=== PATIENT | female | born 1965 | race American Indian/Alaskan Native ===

== ENCOUNTER 2016-06-09 15:46 | Emergency (ER) | payer SELFPAY ==
[2016-06-09 16:42] VITALS: BP 170/92
== END 2016-06-09 19:22 | disposition left against medical advice (07) ==
LOC: ED 15:46
DX: M79.606 Pain in leg, unspecified (principal); M25.559 Pain in unspecified hip; Z53.21 Procedure and treatment not carried out due to patient leaving prior to being seen by health care provider

== ENCOUNTER 2017-07-13 19:31 | Emergency (ER) | payer SELFPAY ==
[2017-07-13 20:44] VITALS: BP 162/93
[2017-07-14] MEDS ORDERED: TORADOL IM ONE (00:24)
[2017-07-14] MEDS ORDERED: ULTRAM PO ONE (00:25)
--- NOTE | 2017-07-14 00:46 | Emergency Department Report ---
HPI - General Chief Complaint: Back Pain/Injury Time Seen by Provider: 07/14/17 00:24 - HPI HPI: The patient is a 51-year-old female with a history of chronic back pain, presents for evaluation of recurrence of back pain. The patient states that she has experienced recurrence of back pain for the past 9 days, currently 8/10 in severity, sharp in quality, exacerbated with movement of the lower back. The patient denies blunt trauma to the back, fall, fever, chills, night sweats, saddle anesthesia, paresthesias, numbness or tingling in the legs, leg weakness , urine or bowel incontinence or retention, difficulty ambulating, or other focal neurological deficits. The patient also denies redness or swelling to the back, IV drug use, history of cancer. ED Past Medical Hx - Past Medical History Hx Psychiatric Treatment: Yes (bipolar) Additional medical history: Sciatic nerve pain, Leg pain, Pain management for back pain - Surgical History Additional Surgical History: Right knee - Social History Smoking Status: Current Every Day Smoker Substance Use Type: None - Medications Home Medications: Home Medications Medication Instructions Recorded Confirmed Last Taken Type Cyclobenzaprine [Flexeril] 10 mg PO TID PRN 06/09/16 06/09/16 06/09/16 History Naproxen [Naprosyn] 500 mg PO BID 06/09/16 06/09/16 06/09/16 History traMADol [Ultram 50 MG tab] 50 mg PO Q6HR PRN #10 tablet 07/14/17 Unknown Rx ED Review of Systems ROS: Stated complaint: BACK PAIN Other details as noted in HPI Constitutional: denies: fever ENT: denies: throat or neck pain Respiratory: denies: cough, shortness of breath Cardiovascular: denies: chest pain Endocrine: denies unexplained weight loss or gain Gastrointestinal: denies: abdominal pain, nausea Genitourinary: denies: dysuria Musculoskeletal: reports back pain denies: leg swelling Skin: denies: rash Neurological: denies: headache Hematological/Lymphatic: denies: easy bleeding or easy bruising Psych: denies sadness or hopelessness Physical Exam - Physical Exam Vital Signs: Vital Signs 07/13/17 20:38 Temperature 97.8 F Pulse Rate 80 Respiratory 18 Rate Blood Pressure 162/93 O2 Sat by Pulse 100 Oximetry Physical Exam: General: well-nourished, well-developed, no acute distress Head: Normocephalic, atraumatic Eyes: normal sclera ENT: Mucous membranes are pink and moist Neck: trachea midline, neck supple, No neck stiffness, no cervical adenopathy Respiratory: Breath sounds equal bilaterally, no wheezing, rales, or rhonchi Cardio: S1 and S2 present, no murmurs, rubs, gallops, capillary refill is brisk Abdomen: Normoactive bowel sounds, soft abdomen, no rigidity, no guarding or rebound tenderness Chest WALL/Back: Tenderness to palpation present to bilateral lower lumbar paraspinal musculature, normal active range of motion at the hip intact, no spinous step-off or obvious deformity, ipsi-lateral and contralateral straight leg raise tests are negative. On extremity testing, compartments are soft and pliable, no obvious gross motor strength deficit, 5+ motor strength, including extension of the great toe bilaterally, no muscular atrophy, spasticity, fasciculations, or clonus, no obvious gross sensation deficit including web space between 1st and 2nd toes, reflexes 2+ & symmetric on DTR testing at the knee and ankle joints, distal pulses intact. Musc: No pitting edema Skin: No rash Neuro: no facial drooping, normal speech Psych: Normal affect ED Course Vital Signs 07/13/17 20:38 Temperature 97.8 F Pulse Rate 80 Respiratory 18 Rate Blood Pressure 162/93 O2 Sat by Pulse 100 Oximetry ED Medical Decision Making - Medical Decision Making The patient was seen and examined by myself. The patient is placed on a lead teller and continuous pulse ox. On initial evaluation, the patient was found to be in no distress. No findings on exam concerning for cauda equina syndrome, spinal stenosis, or epidural abscess . As the patient has no midline tenderness on exam, no neuro deficits, and no findings concerning for emergent etiology of their back pain, imaging will not be obtained at this time. The patient is given an IM dose of Toradol for her pain. The patient is stable for discharge with outpatient follow-up. The patient is given follow-up and return instructions. The patient expressed understanding and agreed with the plan. The patient is discharged in stable condition. Critical care attestation.: If time is entered above; I have spent that time in minutes in the direct care of this critically ill patient, excluding procedure time. ED Disposition Clinical Impression: Acute bilateral low back pain without sciatica Disposition: TO HOME OR SELFCARE Is pt being admited?: No Does the pt Need Aspirin: No Condition: Stable Instructions: Back Pain (ED), Sciatica (ED) Additional Instructions: Do not take more than the prescribed dose of pain medicine, or combine or take the pain medicine prescribed to you today with other pain medicine, sleeping medicine or other sedatives, or with alcohol, as doing so may cause central nervous system sedation and respiratory depression, and potentially cause you to stop breathing and . Additionally, do not drive a vehicle, operate heavy machinery, or engage in any activity that would cause harm to yourself or others after taking the pain medicine prescribed to you. Referrals: PRIMARY CARE, [Primary Care Provider] - 3-5 Days Time of Disposition: 00:34
== END 2017-07-14 01:10 | disposition home or self-care (01) ==
LOC: ED 19:31
DX: M54.5 Low back pain (principal); G89.29 Other chronic pain; F31.9 Bipolar disorder, unspecified; F17.200 Nicotine dependence, unspecified, uncomplicated
CPT/HCPCS: 96372; 99283; J1885

== ENCOUNTER 2017-08-14 15:32 | Emergency (ER) | payer SELFPAY ==
[2017-08-14 16:11] VITALS: BP 176/106
== END 2017-08-14 18:06 | disposition left against medical advice (07) ==
LOC: ED 15:32
DX: M79.89 Other specified soft tissue disorders (principal); Z53.21 Procedure and treatment not carried out due to patient leaving prior to being seen by health care provider

== ENCOUNTER 2017-08-15 06:16 | Emergency (ER) | payer SELFPAY ==
--- NOTE | 2017-08-15 12:37 | Emergency Department Report ---
ED Lower Extremity HPI - General Chief Complaint: Extremity Injury, Lower Stated Complaint: LEFT FOOT PAIN ,SWOLLEN Time Seen by Provider: 08/15/17 12:35 Source: patient Mode of arrival: Ambulatory Limitations: No Limitations - History of Present Illness Initial Comments: This is a 51 y.o. female that presents with left foot pain for 3 days. Patient has history of chronic low back pain with sciatica bilaterally. Reports recent low back pain radiating down RLE. She was nursing the right lower extremity and putting more pressure on LLE. States left ankle is swollen and painful with ambulation. She was seeing pain management while living in [place] and have no insurance to f/u with them here. Reports pain got worse over the past 2 days. 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 Pain is 10/10 on pain scale and worse with flexion. She is taking ibuprofen and tylenol with no improvement of symptoms. Denies numbness, tingling, redness, deformity, recent fall/injury to left ankle. MD Complaint: ankle injury (swollen and painful with weight bearing) -: days(s) (3) Injury: Ankle: Left (swollen and painful with ambulation) Type of Injury: unknown Place: home Severity: severe Severity scale (0 -10): 10 Improves With: nothing Worsens With: weight bearing, movement Associated Symptoms: swelling, able to partially bear weight, ambulatory. denies: numbness, tingling, unable to bear weight Treatments Prior to Arrival: NSAIDS - Related Data Home Medications Medication Instructions Recorded Confirmed Last Taken Cyclobenzaprine [Flexeril] 10 mg PO TID PRN 06/09/16 06/09/16 06/09/16 Naproxen [Naprosyn] 500 mg PO BID 06/09/16 06/09/16 06/09/16 Previous Rx's Medication Instructions Recorded Last Taken Type traMADol [Ultram 50 MG tab] 50 mg PO Q6HR PRN #10 tablet 07/14/17 Unknown Rx Cyclobenzaprine HCl [Flexeril 5 MG 5 mg PO TID PRN #20 tab 08/15/17 Unknown Rx TAB] Hydrochlorothiazide 12.5 mg PO DAILY #30 tablet 08/15/17 Unknown Rx Ibuprofen 800 mg PO Q6H PRN #20 tablet 08/15/17 Unknown Rx Losartan [Cozaar] 12.5 mg PO QDAY #30 tablet 08/15/17 Unknown Rx Allergies Allergy/AdvReac Type Severity Reaction Status Date / Time No Known Allergies Allergy Verified 07/13/17 20:45 ED Review of Systems ROS: Stated complaint: LEFT FOOT PAIN ,SWOLLEN Other details as noted in HPI Constitutional: denies: chills, fever Respiratory: denies: cough, shortness of breath, wheezing Cardiovascular: denies: chest pain, palpitations Gastrointestinal: denies: abdominal pain, nausea, diarrhea Musculoskeletal: joint swelling (right ankle), arthralgia (right ankle pain). denies: back pain Skin: denies: rash, lesions Neurological: denies: headache, weakness, numbness, paresthesias Psychiatric: denies: anxiety, depression ED Past Medical Hx - Past Medical History Previous Medical History?: Yes Hx Arthritis: Yes Hx Psychiatric Treatment: Yes (bipolar) Additional medical history: Sciatic nerve pain, Leg pain, Pain management for back pain - Surgical History Past Surgical History?: Yes Additional Surgical History: Right knee - Social History Smoking Status: Current Every Day Smoker Substance Use Type: Alcohol - Medications Home Medications: Home Medications Medication Instructions Recorded Confirmed Last Taken Type Cyclobenzaprine [Flexeril] 10 mg PO TID PRN 06/09/16 06/09/16 06/09/16 History Naproxen [Naprosyn] 500 mg PO BID 06/09/16 06/09/16 06/09/16 History traMADol [Ultram 50 MG tab] 50 mg PO Q6HR PRN #10 tablet 07/14/17 Unknown Rx Cyclobenzaprine HCl [Flexeril 5 MG 5 mg PO TID PRN #20 tab 08/15/17 Unknown Rx TAB] Hydrochlorothiazide 12.5 mg PO DAILY #30 tablet 08/15/17 Unknown Rx Ibuprofen 800 mg PO Q6H PRN #20 tablet 08/15/17 Unknown Rx Losartan [Cozaar] 12.5 mg PO QDAY #30 tablet 08/15/17 Unknown Rx ED Physical Exam - General Limitations: No Limitations General appearance: alert, in no apparent distress - Respiratory Respiratory exam: Present: normal lung sounds bilaterally. Absent: respiratory distress, wheezes, rales, rhonchi, stridor, decreased breath sounds - Cardiovascular Cardiovascular Exam: Present: regular rate, normal rhythm, normal heart sounds. Absent: systolic murmur, diastolic murmur, rubs, gallop - GI/Abdominal GI/Abdominal exam: Present: soft, normal bowel sounds. Absent: distended, tenderness, guarding, rebound, rigid, organomegaly, mass - Extremities Exam Extremities exam: Present: normal inspection, full ROM (painful with movement), normal capillary refill. Absent: pedal edema - Expanded Lower Extremity Exam Left Hip exam: Present: normal inspection, full ROM Upper Leg exam: Present: normal inspection, full ROM Knee exam: Present: normal inspection, full ROM Lower Leg exam: Present: normal inspection, full ROM Ankle exam: Present: full ROM (painful with movement passive and active dorsiflexion and plantarflexion, 45 degree), swelling. Absent: abrasion, laceration, ecchymosis, deformity, crepidus, dislocation, erythema, anterior draw sign Foot/Toe exam: Present: normal inspection, full ROM Neuro vascular tendon exam: Present: no vascular compromise Gait: Positive: observed and limited by pain ED Course Vital Signs 08/15/17 08/15/17 08/15/17 07:46 11:25 13:06 Temperature 97.6 F 97.6 F Pulse Rate 82 73 Respiratory 18 18 18 Rate Blood Pressure 193/86 185/99 Blood Pressure [Left] O2 Sat by Pulse 98 Oximetry 08/15/17 14:33 Temperature 97.8 F Pulse Rate 68 Respiratory 16 Rate Blood Pressure Blood Pressure 172/93 [Left] O2 Sat by Pulse 100 Oximetry ED Lower Extremity MDM - Medical Decision Making This is a 51 y.o. female that presents with left ankle pain for 3 days. History of chronic low back pain with sciatica. Patient is stable and examined by me. No x-rays or labs obtained today. Denies recent injury. Blood Pressure elevated. Received clonodine 0.1 mg po and torodol 30 mg IM once in ER. Blood pressure trending down. No acute signs of distress noted. Discussed plan to start losartan 50 mg po daily and HCTZ 12.5 mg po daily with patient. Patient agrees to ED plan of care. Discharged home with losartin and HCTZ for hypertension, cyclobenzaprine, and ibuprofen. Follow up with PCP in 2-3 days. Critical care attestation.: If time is entered above; I have spent that time in minutes in the direct care of this critically ill patient, excluding procedure time. ED Disposition Clinical Impression: Pain and swelling of right ankle, Arthralgia of ankle, left Disposition: DC-01 TO HOME OR SELFCARE Is pt being admited?: No Does the pt Need Aspirin: No Condition: Stable Instructions: Arthralgia (ED) Additional Instructions: Rest Use ice or heat on affected area for 20 minutes and off for 2 hours. Take pain medication as needed for pain. Don't drive or operate heavy machinery while taking muscle relaxers because they may cause drowsiness. Follow up with Primary Care Provider in 2-3 days. Prescriptions: Cyclobenzaprine HCl [Flexeril 5 MG TAB] 5 mg PO TID PRN #20 tab PRN Reason: Muscle Spasm Hydrochlorothiazide 12.5 mg PO DAILY #30 tablet Ibuprofen 800 mg PO Q6H PRN #20 tablet PRN Reason: Pain Losartan [Cozaar] 12.5 mg PO QDAY #30 tablet Referrals: JELLY MARSHALL MD [Primary Care Provider] - 3-5 Days [facility] [Outside] - 3-5 Days [facility] [Outside] - 3-5 Days [facility] [Outside] - 3-5 Days Forms: Work/School Release Form(ED) Time of Disposition: 14:42 Print Language: ZIMBABWEAN
[2017-08-15] MEDS ORDERED: TORADOL IM ONE (12:55)
[2017-08-15] MEDS ORDERED: CATAPRES PO ONE (13:00)
[2017-08-15 14:34] VITALS: BP 172/93
== END 2017-08-15 15:11 | disposition home or self-care (01) ==
LOC: ED 06:16
DX: M25.571 Pain in right ankle and joints of right foot (principal); M25.572 Pain in left ankle and joints of left foot; M19.90 Unspecified osteoarthritis, unspecified site; F31.9 Bipolar disorder, unspecified; F17.200 Nicotine dependence, unspecified, uncomplicated
CPT/HCPCS: 96372; 99282; J1885

== ENCOUNTER 2020-04-25 13:44 | Emergency (ER) | payer SELFPAY ==
[2020-04-25 14:26] VITALS: BP 189/99
--- NOTE | 2020-04-25 14:27 | Event Note ---
ED Screening Note Date of service: 04/25/20 Time: 14:25 ED Screening Note: 54-year-old -[place] female presents to the emergency room for left knee pain and swelling x3 weeks. This initial assessment/diagnostic orders/clinical plan/treatment(s) is/are subject to change based on patients health status, clinical progression and re- assessment by fellow clinical providers in the ED. Further treatment and workup at subsequent clinical providers discretion. Patient/guardian urged not to elope from the ED as their condition may be serious if not clinically assessed and managed. Initial orders include:
--- NOTE | 2020-04-25 15:09 | XRay Report ---
LEFT KNEE 3 VIEW(S) INDICATION / CLINICAL INFORMATION: Knee pain with swelling COMPARISON: None available. FINDINGS: BONES / JOINT(S): No acute fracture or subluxation. 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 Large proximal patellar enthesophyte and small inferior patellar enthesophyte. Small suprapatellar joint effusion. 1.4 cm ossific fragment overlying the suprapatella r space could represent intra-articular body. SOFT TISSUES: Mild edema. ADDITIONAL FINDINGS: None. Signer Name: Roney Landeros MD Signed: 04/25/2020 3:04 PM Workstation Name: [id number]
[2020-04-25] MEDS ORDERED: oxyCODONE /ACETAMINOPHEN 5-325MG TAB PO ONE (20:02)
[2020-04-25] MEDS ORDERED: KETOROLAC 30 MG/1 ML INJ IV ONE (20:02)
[2020-04-25] MEDS ORDERED: dexAMETHasone 20 MG/5 ML VIAL IV ONE (20:02)
[2020-04-25 20:53] LABS: Basophils % (Auto) 0.6 % (0.0-1.8); Eosinophils # (Auto) 0.1 K/mm3 (0.0-0.4); Eosinophils % (Auto) 1.5 % (0.0-4.3); Hematocrit 37.5 % (30.3-42.9); Hemoglobin 12.4 gm/dl (10.1-14.3); Lymphocytes # (Auto) 3.2 K/mm3 (1.2-5.4); Lymphocytes % (Auto) 42.6 % (13.4-35.0); Mean Corpuscular HGB Conc 33 % (30-34); Mean Corpuscular Volume 93 fl (79-97); Monocytes # (Auto) 0.7 K/mm3 (0.0-0.8); Platelet Count 342 K/mm3 (140-440); Red Blood Count 4.06 M/mm3 (3.65-5.03); Red Cell Distribution Width 13.9 % (13.2-15.2)
[2020-04-25] MEDS ORDERED: amLODIPine 5 MG TAB PO ONE (21:03)
[2020-04-25 21:12] LABS: Alanine Aminotransferase 10 units/L (7-56); Albumin 3.8 g/dL (3.9-5); Blood Urea Nitrogen 15 mg/dL (7-17); Calcium 9.9 mg/dL (8.4-10.2); Hemolysis Index 14
[2020-04-25 21:14] LABS: BUN/Creatinine Ratio 21
--- NOTE | 2020-04-25 21:47 | Emergency Department Report ---
ED Extremity Problem HPI - General Chief complaint: Extremity Injury, Lower Stated complaint: LT KNEE PAIN Source: patient Mode of arrival: Wheelchair Limitations: No Limitations - History of Present Illness Initial comments: Patient is a 54-year-old -[place] female with a history of hypertension, chronic osteoarthritis, chronic low back pain with sciatica and bipolar disorder who presents to the ED with complaint of acute exacerbation of her chronic pain characterized by severe left knee pain with swelling for the last 3 weeks, worse in the last 3 days. Patient states that when the pain becomes worse she occasionally experiences episodes of syncope. Patient states that in the last 3 weeks she has had 2 episodes of syncope because of severe pain with no loss of consciousness. Patient also states that she has not been taking any blood pressure medication for over 6 months after she ran out of her medications. Patient states that the pain is worse with any ambulation or weightbearing on the left leg. Patient denies chest pain, shortness of breath, fever, chills, cough, nausea and vomiting, abdominal pain, headache, change in vision, seizures, numbness and tingling or weakness of lower extremities bilaterally, urinary or bowel incontinence or saddle paresthesia. MD Complaint: extremity pain (left knee ), extremity swelling (left knee pain and swelling), joint swelling (left knee swelling and pain), joint paint (left knee joint pain) -: Sudden, week(s) (3) Location: left, lower extremity (knee), knee History of Same: Yes -: Yes arthralgia (left knee), No fever, No associated dyspnea, No associated chest pain Severity scale (0 -10): 10 Quality: aching, sharp, constant Consistency: constant Improves with: nothing Worsens with: weight bearing, walking, exertion, palpation Associated Symptoms: denies other symptoms, arthralgias (Left knee). denies: chest pain, shortness of breath, fever, myalgias - Related Data Home Medications Medication Instructions Recorded Confirmed Last Taken Cyclobenzaprine [Flexeril] 10 mg PO TID PRN 06/09/16 06/09/16 06/09/16 Naproxen [Naprosyn] 500 mg PO BID 06/09/16 06/09/16 06/09/16 Previous Rx's Medication Instructions Recorded Last Taken Type Cyclobenzaprine HCl [Flexeril 5 MG 5 mg PO TID PRN #20 tab 08/15/17 Unknown Rx TAB] Ibuprofen 800 mg PO Q6H PRN #20 tablet 08/15/17 Unknown Rx Losartan [Cozaar] 12.5 mg PO QDAY #30 tablet 08/15/17 Unknown Rx hydroCHLOROthiazide 12.5 mg PO DAILY #30 tablet 08/15/17 Unknown Rx [Hydrochlorothiazide] oxyCODONE /ACETAMINOPHEN [Percocet 1 tab PO Q6HR PRN #10 tablet 11/26/19 Unknown Rx 5/325] Lisinopril/Hydrochlorothiazide 1 tab PO QDAY #30 tab 04/25/20 Unknown Rx [Zestoretic 20-25 mg] Naproxen 500 mg PO Q12H PRN #30 tablet 04/25/20 Unknown Rx methOCARBAMOL [Robaxin TAB] 750 mg PO Q8H PRN #30 tablet 04/25/20 Unknown Rx predniSONE [Deltasone] 60 mg PO QDAY #18 tab 04/25/20 Unknown Rx traMADoL [Ultram 50 MG tab] 50 mg PO Q6HR PRN #12 tablet 04/25/20 Unknown Rx Allergies Allergy/AdvReac Type Severity Reaction Status Date / Time No Known Allergies Allergy Verified 07/13/17 20:45 ED Review of Systems ROS: Stated complaint: LT KNEE PAIN Other details as noted in HPI Constitutional: malaise. denies: chills, fever, weakness Eyes: denies: eye pain, eye discharge, vision change ENT: denies: ear pain, throat pain, congestion Respiratory: denies: cough, shortness of breath, wheezing Cardiovascular: syncope (due to severe pain). denies: chest pain, palpitations Endocrine: no symptoms reported Gastrointestinal: denies: abdominal pain, nausea, vomiting, diarrhea Genitourinary: denies: urgency, dysuria, discharge Musculoskeletal: joint swelling (left knee pain and swelling), arthralgia (left knee pain and swelling), myalgia. denies: back pain Skin: denies: rash, lesions Neurological: denies: headache, weakness, paresthesias Psychiatric: denies: anxiety, depression Hematological/Lymphatic: denies: easy bleeding, easy bruising ED Past Medical Hx - Past Medical History Previous Medical History?: Yes Hx Hypertension: Yes Hx Arthritis: Yes Hx Psychiatric Treatment: Yes (bipolar) Additional medical history: Sciatic nerve pain, Leg pain, Pain management for back pain - Surgical History Additional Surgical History: Right knee - Social History Smoking Status: Current Every Day Smoker Substance Use Type: Alcohol - Medications Home Medications: Home Medications Medication Instructions Recorded Confirmed Last Taken Type Cyclobenzaprine [Flexeril] 10 mg PO TID PRN 06/09/16 06/09/16 06/09/16 History Naproxen [Naprosyn] 500 mg PO BID 06/09/16 06/09/16 06/09/16 History Cyclobenzaprine HCl [Flexeril 5 MG 5 mg PO TID PRN #20 tab 08/15/17 Unknown Rx TAB] Ibuprofen 800 mg PO Q6H PRN #20 tablet 08/15/17 Unknown Rx Losartan [Cozaar] 12.5 mg PO QDAY #30 tablet 08/15/17 Unknown Rx hydroCHLOROthiazide 12.5 mg PO DAILY #30 tablet 08/15/17 Unknown Rx [Hydrochlorothiazide] oxyCODONE /ACETAMINOPHEN [Percocet 1 tab PO Q6HR PRN #10 tablet 11/26/19 Unknown Rx 5/325] Lisinopril/Hydrochlorothiazide 1 tab PO QDAY #30 tab 04/25/20 Unknown Rx [Zestoretic 20-25 mg] Naproxen 500 mg PO Q12H PRN #30 tablet 04/25/20 Unknown Rx methOCARBAMOL [Robaxin TAB] 750 mg PO Q8H PRN #30 tablet 04/25/20 Unknown Rx predniSONE [Deltasone] 60 mg PO QDAY #18 tab 04/25/20 Unknown Rx traMADoL [Ultram 50 MG tab] 50 mg PO Q6HR PRN #12 tablet 04/25/20 Unknown Rx ED Physical Exam - General Limitations: No Limitations General appearance: alert, in no apparent distress - Head Head exam: Present: atraumatic, normocephalic, normal inspection - Eye Eye exam: Present: normal appearance, PERRL, EOMI Pupils: Present: normal accommodation - ENT ENT exam: Present: normal exam, normal orophraynx, mucous membranes moist, TM's normal bilaterally, normal external ear exam - Neck Neck exam: Present: normal inspection, full ROM. Absent: tenderness, meningismus, lymphadenopathy, thyromegaly - Respiratory Respiratory exam: Present: normal lung sounds bilaterally. Absent: respiratory distress, wheezes, rales, rhonchi, chest wall tenderness, accessory muscle use, decreased breath sounds, prolonged expiratory - Cardiovascular Cardiovascular Exam: Present: regular rate, normal rhythm, normal heart sounds. Absent: systolic murmur, diastolic murmur, rubs, gallop - GI/Abdominal GI/Abdominal exam: Present: soft, normal bowel sounds. Absent: tenderness, guarding, rebound, hyperactive bowel sounds, hypoactive bowel sounds, organ omegaly, mass, pulsatile mass - Extremities Exam Extremities exam: Present: normal inspection, tenderness (Palpable left knee tenderness with swelling and limited ROM due to pain), normal capillary refill, joint swelling (left knee swelling). Absent: full ROM (Limited ROM of left knee due to pain), pedal edema, calf tenderness - Back Exam Back exam: Present: normal inspection, full ROM. Absent: tenderness, CVA tender ness (R), CVA tenderness (L), muscle spasm, paraspinal tenderness, vertebral tenderness - Neurological Exam Neurological exam: Present: alert, oriented X3, CN II-XII intact, normal gait, reflexes normal - Psychiatric Psychiatric exam: Present: normal affect, normal mood - Skin Skin exam: Present: warm, dry, intact, normal color. Absent: rash ED Course Vital Signs 04/25/20 14:25 Temperature 98.3 F Pulse Rate 72 Respiratory 14 Rate Blood Pressure 189/99 O2 Sat by Pulse 99 Oximetry ED Medical Decision Making - Lab Data Result diagrams: 04/25/20 20:26 04/25/20 20:26 - EKG Data EKG shows normal: sinus rhythm Rate: normal - EKG Data Interpretation: normal EKG 04/25/20 22:03 The EKG shows normal sinus rhythm with a ventricular rate of [address] or T wave abnormalities or pathological Q waves - Radiology Data Radiology results: report reviewed, image reviewed Findings [facility] [address] [place] [address] XRay Report Signed Patient: GILLES HUTSON MR#: [id number] : 1965 Acct:[id number] Age/Sex: 54 / F ADM Date: 04/25/20 Loc: ED Attending Dr: Ordering Physician: YA HEATON Date of Service: 04/25/20 Procedure(s): XR knee 3V LT Accession Number(s): [id number] cc: YA HEATON Time In Minutes: LEFT KNEE 3 VIEW(S) INDICATION / CLINICAL INFORMATION: Knee pain with swelling COMPARISON: None available. FINDINGS: BONES / JOINT(S): No acute fracture or subluxation. Tricompartmental degenerative osteoarthrosis worst in the patellofemoral compartment. Large proximal patellar enthesophyte and small inferior patellar enthesophyte. Small suprapatellar joint effusion. 1.4 cm ossific fragment overlying the suprapatellar space could represent intra-articular body. SOFT TISSUES: Mild edema. ADDITIONAL FINDINGS: None. Signer Name: Kanwal Landeros MD Signed: 04/25/2020 3:04 PM Workstation Name: [id number] Transcribed By: Dictated By: KANWAL LANDEROS III Electronically Authenticated By: KANWAL LANDEROS III Signed Date/Time: 04/25/201503 DD/ 02 TD/TT: - Medical Decision Making This is a 54-year-old -[place] female with a history of hypertension, chronic osteoarthritis, chronic low back pain with sciatica and bipolar disorder who presents to the ED with complaint of acute exacerbation of her chronic pain characterized by severe left knee pain with swelling for the last 3 weeks, worse in the last 3 days. Patient states that when the pain becomes worse she occasionally experiences episodes of syncope. Patient states that in the last 3 weeks she has had 2 episodes of syncope because of severe pain with no loss of consciousness. Patient also states that she has not been taking any blood pressure medication for over 6 months after she ran out of her medications. Patient states that the pain is worse with any ambulation or weightbearing on the left leg. In the ED, patient is alert and oriented x3 and is not in distress but appears to be in pain and anxious, and is also hypertensive in triage. Left knee x-ray showed no acute fracture or subluxation. Tricompartmental degenerative osteoarthrosis worst in the patellofemoral compartment. Large proximal patellar enthesophyte and small inferior patellar enthesophyte. Small suprapatellar joint effusion. 1.4 cm ossific fragment overlying the suprapatellar space could represent intra-articular body. EKG showed normal sinus rhythm with a ventricular rate of [address] or T wave abnormalities or pathological Q waves. The lab test results were reviewed and are all nonactionable including troponin levels. Patient's heart score is 2 and is PERC negative by Wells criteria. Patient was treated in the ED for pain and on reevaluation, patient's pain is well controlled medications. Patient's left knee was splinted with Cristhian wrap and the patient was discharged home on pain medications and advised to follow-up with her primary care physician in 3 to 5 days for reevaluation or return to the ED immediately if symptoms get worse. Patient was also given a referral to the orthopedic surgeon Dr. Gracia for follow-up of her chronic osteoarthritis. - Differential Diagnosis DJD; Knee sprain; Knee effusion; Knee fracture; Gouty Arthropathy Critical care attestation.: If time is entered above; I have spent that time in minutes in the direct care of this critically ill patient, excluding procedure time. ED Disposition Clinical Impression: Chronic osteoarthritis, Effusion of left knee joint, Uncontrolled stage 2 hypertension Disposition: TO HOME OR SELFCARE Is pt being admited?: No Does the pt Need Aspirin: No Condition: Stable Instructions: Knee Effusion, [id number], Osteoarthritis, Arthritis, [id number], Hypertension (ED), Hypertension, Adult, [id number] Additional Instructions: All lab test results are unremarkable. Left knee x-ray shows no acute fracture or subluxation but a tricompartmental degenerative osteoarthrosis worst in the patellofemoral compartment. Large proximal patellar enthesophyte and small inferior patellar enthesophyte. Small suprapatellar joint effusion. 1.4 cm ossific fragment overlying the suprapatellar space could represent intra- articular body. Therefore take pain medications as advised with food, drink plenty of fluids and follow-up with your primary care physician in 5 to 7 days for reevaluation. Return to the ED immediately if symptoms get worse. Prescriptions: predniSONE [Deltasone] 60 mg PO QDAY #18 tab Naproxen 500 mg PO Q12H PRN #30 tablet PRN Reason: Pain , Severe (7-10) methOCARBAMOL [Robaxin TAB] 750 mg PO Q8H PRN #30 tablet PRN Reason: Muscle spasm traMADoL [Ultram 50 MG tab] 50 mg PO Q6HR PRN #12 tablet PRN Reason: Pain Lisinopril/Hydrochlorothiazide [Zestoretic 20-25 mg] 1 tab PO QDAY #30 tab Referrals: PRIMARY CARE, [Primary Care Provider] - 3-5 Days Forms: Work/School Release Form(ED) Time of Disposition: 21:50 Print Language: VIETNAMESE
== END 2020-04-25 22:51 | disposition home or self-care (01) ==
LOC: ED 13:44
DX: M17.12 Unilateral primary osteoarthritis, left knee (principal); I10 Essential (primary) hypertension; M19.90 Unspecified osteoarthritis, unspecified site; F31.9 Bipolar disorder, unspecified; F17.200 Nicotine dependence, unspecified, uncomplicated; Z79.899 Other long term (current) drug therapy
CPT/HCPCS: 36415; 73562; 80053; 84484; 85025; 93005; 96374; 96375; 99284; J1100; J1885

== ENCOUNTER 2020-09-05 11:47 | Emergency (ER) | payer SELFPAY ==
[2020-09-05 12:37] VITALS: BP 167/88
[2020-09-05] MEDS ORDERED: KETOROLAC 60 MG/2 ML INJ IM ONE (13:22)
[2020-09-05] MEDS ORDERED: oxyCODONE /ACETAMINOPHEN 5-325MG TAB PO PRN (13:29)
--- NOTE | 2020-09-05 13:30 | Emergency Department Report ---
ED General Adult HPI - General Chief complaint: High BP Stated complaint: HIGH BLOOD PRESSURE Time Seen by Provider: 09/05/20 13:21 Source: patient Mode of arrival: Ambulatory Limitations: No Limitations - History of Present Illness Initial comments: 54-year-old female with past medical history of hypertension chronic osteoarthritis of the knees, sciatica and bipolar disorder. Patient states prem her pain is severe . She has been taking Aleve with no relief last dose of Aleve was taken yesterday. Patient also states that she is out of her blood pr essure medication. She denies any recent falls or injuries. She denies chest pain and shortness of breath. Her current blood pressure is 167/88 patient has a left knee brace in place. She is in no acute distress. -: Gradual Location: lower extremity (Bilateral knees, left thigh) Severity scale (0 -10): 10 Quality: constant Improves with: none Worsens with: movement Associated Symptoms: denies: confusion, chest pain, cough, diaphoresis, fever/chills, headaches, loss of appetite, nausea/vomiting, rash, shortness of breath, syncope, weakness Treatments Prior to Arrival: NSAID - Related Data Home Medications Medication Instructions Recorded Confirmed Last Taken Cyclobenzaprine [Flexeril] 10 mg PO TID PRN 06/09/16 06/09/16 06/09/16 Naproxen [Naprosyn] 500 mg PO BID 06/09/16 06/09/16 06/09/16 Previous Rx's Medication Instructions Recorded Last Taken Type Ibuprofen 800 mg PO Q6H PRN #20 tablet 08/15/17 Unknown Rx Losartan [Cozaar] 12.5 mg PO QDAY #30 tablet 08/15/17 Unknown Rx hydroCHLOROthiazide 12.5 mg PO DAILY #30 tablet 08/15/17 Unknown Rx [Hydrochlorothiazide] oxyCODONE /ACETAMINOPHEN [Percocet 1 tab PO Q6HR PRN #10 tablet 11/26/19 Unknown Rx 5/325] methOCARBAMOL [Robaxin TAB] 750 mg PO Q8H PRN #30 tablet 04/25/20 Unknown Rx predniSONE [Deltasone] 60 mg PO QDAY #18 tab 04/25/20 Unknown Rx traMADoL [Ultram 50 MG tab] 50 mg PO Q6HR PRN #12 tablet 04/25/20 Unknown Rx Cyclobenzaprine HCl [Flexeril 5 MG 5 mg PO TID PRN #20 tab 09/05/20 Unknown Rx TAB] Lisinopril/Hydrochlorothiazide 1 tab PO QDAY #30 tab 09/05/20 Unknown Rx [Zestoretic 20-25 mg] Naproxen 500 mg PO Q12H PRN #30 tablet 09/05/20 Unknown Rx Allergies Allergy/AdvReac Type Severity Reaction Status Date / Time No Known Allergies Allergy Verified 07/13/17 20:45 ED Review of Systems ROS: Stated complaint: HIGH BLOOD PRESSURE Other details as noted in HPI Comment: All other systems reviewed and negative Constitutional: no symptoms reported Eyes: denies: eye pain ENT: denies: ear pain, dental pain Respiratory: denies: cough, SOB with exertion Cardiovascular: denies: chest pain, palpitations, dyspnea on exertion, syncope, paroxysmal nocturnal dyspnea Gastrointestinal: denies: abdominal pain, nausea, diarrhea, constipation Musculoskeletal: other (Bilateral knee pain left sciatica pain) Skin: denies: rash, lesions Neurological: denies: headache, weakness, numbness, paresthesias Psychiatric: denies: anxiety, depression ED Past Medical Hx - Past Medical History Previous Medical History?: Yes Hx Hypertension: Yes Hx Arthritis: Yes Hx Psychiatric Treatment: Yes (bipolar) Additional medical history: Sciatic nerve pain, Leg pain, Pain management for back pain - Surgical History Past Surgical History?: Yes Additional Surgical History: Right knee - Social History Smoking Status: Current Every Day Smoker Substance Use Type: Alcohol - Medications Home Medications: Home Medications Medication Instructions Recorded Confirmed Last Taken Type Cyclobenzaprine [Flexeril] 10 mg PO TID PRN 06/09/16 06/09/16 06/09/16 History Naproxen [Naprosyn] 500 mg PO BID 06/09/16 06/09/16 06/09/16 History Ibuprofen 800 mg PO Q6H PRN #20 tablet 08/15/17 Unknown Rx Losartan [Cozaar] 12.5 mg PO QDAY #30 tablet 08/15/17 Unknown Rx hydroCHLOROthiazide 12.5 mg PO DAILY #30 tablet 08/15/17 Unknown Rx [Hydrochlorothiazide] oxyCODONE /ACETAMINOPHEN [Percocet 1 tab PO Q6HR PRN #10 tablet 11/26/19 Unknown Rx 5/325] methOCARBAMOL [Robaxin TAB] 750 mg PO Q8H PRN #30 tablet 04/25/20 Unknown Rx predniSONE [Deltasone] 60 mg PO QDAY #18 tab 04/25/20 Unknown Rx traMADoL [Ultram 50 MG tab] 50 mg PO Q6HR PRN #12 tablet 04/25/20 Unknown Rx Cyclobenzaprine HCl [Flexeril 5 MG 5 mg PO TID PRN #20 tab 09/05/20 Unknown Rx TAB] Lisinopril/Hydrochlorothiazide 1 tab PO QDAY #30 tab 09/05/20 Unknown Rx [Zestoretic 20-25 mg] Naproxen 500 mg PO Q12H PRN #30 tablet 09/05/20 Unknown Rx ED Physical Exam - General Limitations: No Limitations General appearance: alert, in no apparent distress - Head Head exam: Present: atraumatic - Eye Eye exam: Present: normal appearance - ENT ENT exam: Present: normal exam - Neck Neck exam: Present: normal inspection - Respiratory Respiratory exam: Present: normal lung sounds bilaterally - Cardiovascular Cardiovascular Exam: Present: regular rate, normal heart sounds - GI/Abdominal GI/Abdominal exam: Present: soft - Extremities Exam Extremities exam: Present: joint swelling (Bilateral knee) - Back Exam Back exam: Present: normal inspection - Neurological Exam Neurological exam: Present: alert, oriented X3 - Psychiatric Psychiatric exam: Present: normal affect - Skin Skin exam: Present: warm, dry, intact, normal color ED Course Vital Signs 09/05/20 12:34 Temperature 98.3 F Pulse Rate 67 Respiratory 18 Rate Blood Pressure 167/88 O2 Sat by Pulse 98 Oximetry - Reevaluation(s) Reevaluation #1: 09/05/20 13:33 Patient denies any falls or injuries she states that this is her usual knee pain and she does not need any x-rays. ED Medical Decision Making - Medical Decision Making 54-year-old female with a past medical history of hypertension she is currently out of her blood pressure medicine also complaining of bilateral knee pain she has chronic osteoarthritis. She denies any new falls or injuries. She denies chest pain shortness of breath no fever chills nausea vomiting no abdominal pain patient is here for her chronic knee pain Critical Care Time: No Critical care attestation.: If time is entered above; I have spent that time in minutes in the direct care of this critically ill patient, excluding procedure time. ED Disposition Clinical Impression: Chronic pain of both knees, Sciatica of left side, Medication refill, Hypertension Disposition: TO HOME OR SELFCARE Is pt being admited?: No Does the pt Need Aspirin: No Condition: Stable Instructions: Chronic Knee Pain, Adult, [id number], Chronic Pain, Adult, Hypertension (ED) Additional Instructions: Take all your medications as prescribed. Follow-up with your primary care doctor. Prescriptions: Cyclobenzaprine HCl [Flexeril 5 MG TAB] 5 mg PO TID PRN #20 tab PRN Reason: Muscle Spasm Naproxen 500 mg PO Q12H PRN #30 tablet PRN Reason: Pain , Severe (7-10) Lisinopril/Hydrochlorothiazide [Zestoretic 20-25 mg] 1 tab PO QDAY #30 tab Referrals: HUNTER MEYERS MD [Staff Physician] - 3-5 Days Time of Disposition: 13:35
== END 2020-09-05 14:10 | disposition home or self-care (01) ==
LOC: ED 11:47
DX: M25.561 Pain in right knee (principal); M25.562 Pain in left knee; G89.29 Other chronic pain; I10 Essential (primary) hypertension; Z76.0 Encounter for issue of repeat prescription; M54.32 Sciatica, left side; M19.90 Unspecified osteoarthritis, unspecified site; F32.9 Major depressive disorder, single episode, unspecified; F17.200 Nicotine dependence, unspecified, uncomplicated; Z79.899 Other long term (current) drug therapy
CPT/HCPCS: 96372; 99282; J1885

== ENCOUNTER 2021-01-17 15:14 | Emergency (ER) | payer SELFPAY ==
[2021-01-17 15:56] VITALS: BP 195/105
[2021-01-17] MEDS ORDERED: predniSONE 20 MG TAB PO ONE (16:09)
[2021-01-17] MEDS ORDERED: CLINDAMYCIN 300 MG CAP PO ONE (16:09)
[2021-01-17] MEDS ORDERED: HYDROcodone/ACETAMINOPHEN 10-325MG TAB PO ONE (16:09)
--- NOTE | 2021-01-17 17:15 | Emergency Department Report ---
ED ENT HPI - General Chief complaint: Dental/Oral Stated complaint: tooth pain swollen face Time Seen by Provider: 01/17/21 16:06 Source: patient Mode of arrival: Ambulatory Limitations: No Limitations - History of Present Illness Initial comments: This is a 55-year-old female nontoxic, well nourished in appearance, no acute signs of distress presents to the ED with c/o of right lower toothache several days. Patient denies following up with a dentist. Patient describes toothache as aching level of 8 out of 10. Patient stated this morning she woke up with some facial swelling to right lower facial area. Patient denies any numbness, tingling, fever, chills, headache, stiff neck, abdominal pain, chest pain, shortness of breath. Patient denies any drug allergies. Past medical history includes hypertension. MD complaint: tooth pain -: days(s) Location: tooth # 1 - pain and swelling here Severity: mild Severity scale (0 -10): 8 Quality: aching Consistency: constant Improves with: none Worsens with: none Context- Dental: history of dental caries, poor dental care Associated Symptoms: gum swelling, toothache. denies: fever, cough, pain with swallowing, sore throat, tinnitus, hearing loss, discharge from ear, rhinorrhea - Related Data Home Medications Medication Instructions Recorded Confirmed Last Taken Cyclobenzaprine [Flexeril] 10 mg PO TID PRN 06/09/16 06/09/16 06/09/16 Naproxen [Naprosyn] 500 mg PO BID 06/09/16 06/09/16 06/09/16 Previous Rx's Medication Instructions Recorded Last Taken Type Ibuprofen 800 mg PO Q6H PRN #20 tablet 08/15/17 Unknown Rx Losartan [Cozaar] 12.5 mg PO QDAY #30 tablet 08/15/17 Unknown Rx hydroCHLOROthiazide 12.5 mg PO DAILY #30 tablet 08/15/17 Unknown Rx [Hydrochlorothiazide] oxyCODONE /ACETAMINOPHEN [Percocet 1 tab PO Q6HR PRN #10 tablet 11/26/19 Unknown Rx 5/325] methOCARBAMOL [Robaxin TAB] 750 mg PO Q8H PRN #30 tablet 04/25/20 Unknown Rx predniSONE [Deltasone] 60 mg PO QDAY #18 tab 04/25/20 Unknown Rx traMADoL [Ultram 50 MG tab] 50 mg PO Q6HR PRN #12 tablet 04/25/20 Unknown Rx Cyclobenzaprine HCl [Flexeril 5 MG 5 mg PO TID PRN #20 tab 09/05/20 Unknown Rx TAB] Lisinopril/Hydrochlorothiazide 1 tab PO QDAY #30 tab 09/05/20 Unknown Rx [Zestoretic 20-25 mg] Naproxen 500 mg PO Q12H PRN #30 tablet 09/05/20 Unknown Rx Chlorhexidine Mouthwash [Peridex] 15 ml MM BID #1 bottle 01/17/21 Unknown Rx Clindamycin [Clindamycin CAP] 300 mg PO Q8H #21 cap 01/17/21 Unknown Rx Naproxen 500 mg PO Q12H PRN #12 tablet 01/17/21 Unknown Rx Prednisone [predniSONE 10 mg 10 mg PO .TAPER #1 tab.ds.pk 01/17/21 Unknown Rx (6-Day Pack, 21 Tabs)] Allergies Allergy/AdvReac Type Severity Reaction Status Date / Time No Known Allergies Allergy Verified 07/13/17 20:45 ED Dental HPI - General Chief complaint: Dental/Oral Stated complaint: tooth pain swollen face Time Seen by Provider: 01/17/21 16:06 Source: patient Mode of arrival: Ambulatory Limitations: No Limitations - Related Data Home Medications Medication Instructions Recorded Confirmed Last Taken Cyclobenzaprine [Flexeril] 10 mg PO TID PRN 06/09/16 06/09/16 06/09/16 Naproxen [Naprosyn] 500 mg PO BID 06/09/16 06/09/16 06/09/16 Previous Rx's Medication Instructions Recorded Last Taken Type Ibuprofen 800 mg PO Q6H PRN #20 tablet 08/15/17 Unknown Rx Losartan [Cozaar] 12.5 mg PO QDAY #30 tablet 08/15/17 Unknown Rx hydroCHLOROthiazide 12.5 mg PO DAILY #30 tablet 08/15/17 Unknown Rx [Hydrochlorothiazide] oxyCODONE /ACETAMINOPHEN [Percocet 1 tab PO Q6HR PRN #10 tablet 11/26/19 Unknown Rx 5/325] methOCARBAMOL [Robaxin TAB] 750 mg PO Q8H PRN #30 tablet 04/25/20 Unknown Rx predniSONE [Deltasone] 60 mg PO QDAY #18 tab 04/25/20 Unknown Rx traMADoL [Ultram 50 MG tab] 50 mg PO Q6HR PRN #12 tablet 04/25/20 Unknown Rx Cyclobenzaprine HCl [Flexeril 5 MG 5 mg PO TID PRN #20 tab 09/05/20 Unknown Rx TAB] Lisinopril/Hydrochlorothiazide 1 tab PO QDAY #30 tab 09/05/20 Unknown Rx [Zestoretic 20-25 mg] Naproxen 500 mg PO Q12H PRN #30 tablet 09/05/20 Unknown Rx Chlorhexidine Mouthwash [Peridex] 15 ml MM BID #1 bottle 01/17/21 Unknown Rx Clindamycin [Clindamycin CAP] 300 mg PO Q8H #21 cap 01/17/21 Unknown Rx Naproxen 500 mg PO Q12H PRN #12 tablet 01/17/21 Unknown Rx Prednisone [predniSONE 10 mg 10 mg PO .TAPER #1 tab.ds.pk 01/17/21 Unknown Rx (6-Day Pack, 21 Tabs)] Allergies Allergy/AdvReac Type Severity Reaction Status Date / Time No Known Allergies Allergy Verified 07/13/17 20:45 ED Review of Systems ROS: Stated complaint: tooth pain swollen face Other details as noted in HPI Comment: All other systems reviewed and negative Constitutional: denies: chills, fever Eyes: denies: eye pain, eye discharge, vision change ENT: dental pain. denies: ear pain, throat pain, hearing loss, epistaxis, congestion Respiratory: denies: cough, shortness of breath, wheezing Cardiovascular: denies: chest pain, palpitations Endocrine: no symptoms reported Gastrointestinal: denies: abdominal pain, nausea, diarrhea Genitourinary: denies: urgency, dysuria, discharge Musculoskeletal: denies: back pain, joint swelling, arthralgia Skin: denies: rash, lesions Neurological: denies: headache, weakness, paresthesias Psychiatric: denies: anxiety, depression Hematological/Lymphatic: denies: easy bleeding, easy bruising ED Past Medical Hx - Past Medical History Previous Medical History?: Yes Hx Hypertension: Yes Hx Arthritis: Yes Hx Psychiatric Treatment: Yes (bipolar) Additional medical history: Sciatic nerve pain, Leg pain, Pain management for back pain - Surgical History Past Surgical History?: Yes Additional Surgical History: Right knee - Social History Smoking Status: Current Every Day Smoker Substance Use Type: Alcohol - Medications Home Medications: Home Medications Medication Instructions Recorded Confirmed Last Taken Type Cyclobenzaprine [Flexeril] 10 mg PO TID PRN 06/09/16 06/09/16 06/09/16 History Naproxen [Naprosyn] 500 mg PO BID 06/09/16 06/09/16 06/09/16 History Ibuprofen 800 mg PO Q6H PRN #20 tablet 08/15/17 Unknown Rx Losartan [Cozaar] 12.5 mg PO QDAY #30 tablet 08/15/17 Unknown Rx hydroCHLOROthiazide 12.5 mg PO DAILY #30 tablet 08/15/17 Unknown Rx [Hydrochlorothiazide] oxyCODONE /ACETAMINOPHEN [Percocet 1 tab PO Q6HR PRN #10 tablet 11/26/19 Unknown Rx 5/325] methOCARBAMOL [Robaxin TAB] 750 mg PO Q8H PRN #30 tablet 04/25/20 Unknown Rx predniSONE [Deltasone] 60 mg PO QDAY #18 tab 04/25/20 Unknown Rx traMADoL [Ultram 50 MG tab] 50 mg PO Q6HR PRN #12 tablet 04/25/20 Unknown Rx Cyclobenzaprine HCl [Flexeril 5 MG 5 mg PO TID PRN #20 tab 09/05/20 Unknown Rx TAB] Lisinopril/Hydrochlorothiazide 1 tab PO QDAY #30 tab 09/05/20 Unknown Rx [Zestoretic 20-25 mg] Naproxen 500 mg PO Q12H PRN #30 tablet 09/05/20 Unknown Rx Chlorhexidine Mouthwash [Peridex] 15 ml MM BID #1 bottle 01/17/21 Unknown Rx Clindamycin [Clindamycin CAP] 300 mg PO Q8H #21 cap 01/17/21 Unknown Rx Naproxen 500 mg PO Q12H PRN #12 tablet 01/17/21 Unknown Rx Prednisone [predniSONE 10 mg 10 mg PO .TAPER #1 tab.ds.pk 01/17/21 Unknown Rx (6-Day Pack, 21 Tabs)] ED Physical Exam - General Limitations: No Limitations General appearance: alert, in no apparent distress - Head Head exam: Present: atraumatic, normocephalic - Eye Eye exam: Present: normal appearance - Expanded ENT Exam Expanded Ear exam: Present: normal external inspection Mouth exam: Present: normal external inspection, tongue normal. Absent: drooling, trismus, muffled voice Teeth exam: Present: dental caries, fractured tooth #, dental tenderness #, gingival enlargement, other (some right lower mandible swelling with no induraiton or flutance noted on exam) 1 - Dental Tenderness Throat exam: Positive: normal inspection, other (uvula midline.). Negative: tonsillar erythema, tonsillomegaly, tonsillar exudate, R peritonsillar mass, L peritonsillar mass - Neck Neck exam: Present: normal inspection - Respiratory Respiratory exam: Absent: respiratory distress - Cardiovascular Cardiovascular Exam: Present: regular rate - Extremities Exam Extremities exam: Present: normal inspection, full ROM - Back Exam Back exam: Present: normal inspection, full ROM. Absent: tenderness, CVA tenderness (R), CVA tenderness (L), muscle spasm, paraspinal tenderness, vertebral tenderness, rash noted - Neurological Exam Neurological exam: Present: alert, oriented X3, normal gait - Psychiatric Psychiatric exam: Present: normal affect, normal mood - Skin Skin exam: Present: warm, dry, intact, normal color. Absent: rash ED Course Vital Signs 01/17/21 15:55 Temperature 98.6 F Pulse Rate 82 Respiratory 18 Rate Blood Pressure 195/105 O2 Sat by Pulse 97 Oximetry - Reevaluation(s) Reevaluation #1: 01/17/21 17:12 Patient is speaking in full sentences with no signs of distress noted. ED Medical Decision Making - Medical Decision Making This is a 55-year-old female that presents with dental abscess, gingivitis and dental caries. Patient is stable and was examined by me. There is slight swelling to the right lower mandible with no induration or fluctuance on exam. I did give patient clindamycin 600 mg PO with prednisone in the ED and patient is discharged with clindamycin. Patient also received [place] for pain and stated family member will drive the patient home after discharge due to possible drowsiness. Patient does also have hypertension which she stated takes medication for and follows PCP for this care. According to ACEP: (1) in ED patients with asymptomatic markedly elevated blood pressure, routine screening for acute target organ injury (eg, serum creatinine, urinalysis, ECG) is not required. (1) In patients with asymptomatic markedly elevated blood pressure, routine ED medical intervention is not required. She had strict instructions to follow-up with oral maxillary surgeon in 24 hours or if symptoms would worsen to return to emergency room as was possible. At time of discharge, the patient does not seem toxic or ill in appearance. No acute signs of distress noted. Patient agrees to discharge treatment plan of care. No further questions noted by the patient. Critical care attestation.: If time is entered above; I have spent that time in minutes in the direct care of this critically ill patient, excluding procedure time. ED Disposition Clinical Impression: Dental abscess, Gingivitis, Dental caries Disposition: 01 HOME / SELF CARE / HOMELESS Is pt being admited?: No Does the pt Need Aspirin: No Condition: Stable Instructions: Dental Abscess, [id number] Additional Instructions: Follow-up with oral maxillary surgeon in 24 hours or if symptoms would worsen to return to emergency room as was possible. [facility] Address: [id number], [place] [address] Hours: Monday Closed Monday 8AM-1PM, 2-5PM Monday 8AM-1PM, 2-5PM Monday 8AM-1PM, 2-5PM 8AM-1PM, 2-5PM Monday 7AM-2PM Monday Closed Prescriptions: Clindamycin [Clindamycin CAP] 300 mg PO Q8H #21 cap Naproxen 500 mg PO Q12H PRN #12 tablet PRN Reason: Pain , Severe (7-10) Chlorhexidine Mouthwash [Peridex] 15 ml MM BID #1 bottle Prednisone [predniSONE 10 mg (6-Day Pack, 21 Tabs)] 10 mg PO .TAPER #1 tab.[email or web address] Referrals: PRIMARY CARE, [Primary Care Provider] - 3-5 Days [facility] [Outside] - 3-5 Days [facility] [Outside] - 3-5 Days Forms: Work/School Release Form(ED) Time of Disposition: 17:15
== END 2021-01-17 18:14 | disposition home or self-care (01) ==
LOC: ED 15:14
DX: K04.7 Periapical abscess without sinus (principal); K02.9 Dental caries, unspecified; K05.10 Chronic gingivitis, plaque induced; F31.9 Bipolar disorder, unspecified; I10 Essential (primary) hypertension; M19.90 Unspecified osteoarthritis, unspecified site; F17.200 Nicotine dependence, unspecified, uncomplicated; Z79.899 Other long term (current) drug therapy; Z98.890 Other specified postprocedural states
CPT/HCPCS: 99282; J7512